=== PATIENT | male | born 1975 | race African-American/Black ===

== ENCOUNTER 2017-03-21 05:09 | Emergency (ER) | payer OTHER ==
[~2017-03-21] VITALS: Ht 180.3 cm; Wt 95.0 kg
[~2017-03-21 05:09] MED LIST: AMOXICILLIN875 MG PO; BACTRIM,SEPT1 TABLET PO; GABAPENTIN100 MG PO; GLUCOPHAGE500 MG PO; KEFLEX500 MG PO; METFORMIN HCL1000 MG PO; PERCOCET 5/31 TABLET PO; ULTRAM50 MG PO
[2017-03-21] MEDS ORDERED: CLEOCIN300 MG PO (05:20)
[2017-03-21 05:34] VITALS: BP 147/85
== END 2017-03-21 05:34 | disposition home or self-care (01) ==
LOC: EME 05:09
DX: L02.32 Furuncle of buttock (principal); L03.317 Cellulitis of buttock; E11.9 Type 2 diabetes mellitus without complications; Z79.84 Long term (current) use of oral hypoglycemic drugs
CPT/HCPCS: 99281; 99284

== ENCOUNTER 2017-05-15 12:25 | Emergency (ER) | payer OTHER ==
[~2017-05-15] VITALS: Ht 177.8 cm; Wt 92.3 kg
[~2017-05-15 12:25] MED LIST changes: +CLEOCIN300 MG PO
[2017-05-15] MEDS ORDERED: FLEXERIL10 MG PO (13:59)
[2017-05-15 14:28] VITALS: BP 145/95
== END 2017-05-15 14:28 | disposition home or self-care (01) ==
LOC: EME 12:25
DX: S16.1XXA Strain of muscle, fascia and tendon at neck level, initial encounter (principal); V48.6XXA Car passenger injured in noncollision transport accident in traffic accident, initial encounter; E11.9 Type 2 diabetes mellitus without complications; Z79.84 Long term (current) use of oral hypoglycemic drugs; Z87.891 Personal history of nicotine dependence
CPT/HCPCS: 99281; 99282

== ENCOUNTER 2017-06-11 08:15 | Emergency (ER) | payer OTHER ==
[~2017-06-11] VITALS: Ht 180.3 cm; Wt 94.0 kg
[~2017-06-11 08:15] MED LIST changes: +FLEXERIL10 MG PO
[2017-06-11 08:34] LABS: POINT-OF-CARE METER ID UU13113778
[2017-06-11] MEDS ORDERED: DOXYCYCLINE MO100 MG PO (10:26)
[2017-06-11 10:43] VITALS: BP 157/91
== END 2017-06-11 10:43 | disposition home or self-care (01) ==
LOC: EME 08:15
PROC: 0H9JXZZ Drainage of Left Upper Leg Skin, External Approach (ICD-10-PCS; principal; 2017-06-11)
DX: L02.415 Cutaneous abscess of right lower limb (principal); L02.416 Cutaneous abscess of left lower limb; E11.9 Type 2 diabetes mellitus without complications; Z79.84 Long term (current) use of oral hypoglycemic drugs; Z87.891 Personal history of nicotine dependence
CPT/HCPCS: 82948; 99281; 99283

== ENCOUNTER 2017-10-23 00:22 | Emergency (ER) | payer OTHER ==
[~2017-10-23] VITALS: Ht 180.3 cm; Wt 100.1 kg
[~2017-10-23 00:22] MED LIST changes: +DOXYCYCLINE MO100 MG PO
[2017-10-23 00:50] LABS: HEMATOCRIT 35.1 % (38.0-50.0); MCH 29.6 PG (29.0-34.0); MCHC 34.2 G/DL (30.0-36.0); MCV 86.5 FL (86-99); PLATELET COUNT 373 K/uL (156-360); RBC DIS.WIDTH-CV 11.9 % (11.8-14.6); RBC DIS.WIDTH-SD 37.3 % (39-53); RED BLOOD COUNT 4.06 M/uL (4.00-5.50); WHITE BLOOD COUNT 8.4 K/uL (4.1-10.2)
[2017-10-23 01:07] LABS: ALBUMIN 3.7 g/dL (3.2-4.8); CHLORIDE 100 mEq/L (99-109); POTASSIUM 4.3 mEq/L (3.7-5.4); SODIUM 136 mEq/L (136-147)
[2017-10-23 01:10] LABS: GLUCOSE 388 mg/dL (70-99); TOTAL PROTEIN 6.7 g/dL (6.4-8.3)
[2017-10-23 01:12] LABS: TOTAL BILIRUBIN 0.2 mg/dL (0.0-1.0)
[2017-10-23 01:13] LABS: ALKALINE PHOSPHATASE 156 IU/L (3-129); GFR ESTIMATE (CALCULATED) > 59 mL/min/ (58.99-99999)
[2017-10-23 01:14] LABS: UREA NITROGEN (BUN) 14 mg/dL (9-23)
[2017-10-23 01:15] LABS: AST (GOT) 47 IU/L (2-34)
[2017-10-23 01:16] LABS: ALT (GPT) 32 IU/L (3-49)
[2017-10-23 02:28] LABS: APPEARANCE CLEAR ((CLEAR)); BILIRUBIN NEGATIVE; BLOOD MODERATE; COLOR YELLOW ((YELLOW)); GLUCOSE (STRIP) >=500; KETONES NEGATIVE; LEUKOCYTES NEGATIVE; NITRITE NEGATIVE; PROTEIN (STRIP) >=500; SPECIFIC GRAVITY 1.026 (1.000-1.030); UROBILINOGEN 0.2 MG/DL (0.2-1.0)
[2017-10-23 02:30] LABS: BACTERIA NONE SEEN /HPF; EPITHELIAL CELLS RARE /HPF; HYALINE CASTS 0-5 /LPF; MUCUS TRACE /LPF; UCUL ADDED? NO; WHITE BLOOD CELLS 0-5 /HPF (0-5)
[2017-10-23] MEDS ORDERED: BACTROBAN OINTM22 GM TP (02:31)
[2017-10-23] MEDS ORDERED: METFORMIN HCL500 MG PO (02:31)
[2017-10-23] MEDS ORDERED: BACTRIM,SEPT1 TABLET PO (02:31)
[2017-10-23 03:24] VITALS: BP 167/105
== END 2017-10-23 03:25 | disposition home or self-care (01) ==
LOC: EME 00:22
PROVIDERS: Emergency Medicine
DX: L98.8 Other specified disorders of the skin and subcutaneous tissue (principal); E11.65 Type 2 diabetes mellitus with hyperglycemia; E11.42 Type 2 diabetes mellitus with diabetic polyneuropathy; F17.200 Nicotine dependence, unspecified, uncomplicated; Z79.84 Long term (current) use of oral hypoglycemic drugs
CPT/HCPCS: 80053; 81003; 82948; 85027; 99281; 99284

== ENCOUNTER 2017-11-18 00:56 | Emergency (ER) | payer OTHER ==
[~2017-11-18] VITALS: Ht 180.3 cm; Wt 100.6 kg
[~2017-11-18 00:56] MED LIST changes: +BACTROBAN OINTM22 GM TP; +METFORMIN HCL500 MG PO
[2017-11-18] MEDS ORDERED: AUGMENTIN875 MG PO (02:25)
[2017-11-18 02:55] VITALS: BP 143/102
== END 2017-11-18 02:56 | disposition home or self-care (01) ==
LOC: EME 00:56
DX: S61.254A Open bite of right ring finger without damage to nail, initial encounter (principal); Y04.1XXA Assault by human bite, initial encounter; L05.01 Pilonidal cyst with abscess; E11.9 Type 2 diabetes mellitus without complications; F17.200 Nicotine dependence, unspecified, uncomplicated
CPT/HCPCS: 73130; 99281; 99283